=== PATIENT | female | born 1955 | race Asian ===

== ENCOUNTER 2019-06-20 14:18 | Emergency (ER) | payer BC, OTHER ==
[~2019-06-20] VITALS: Ht 162.6 cm; Wt 65.3 kg
[~2019-06-20 14:18] MED LIST: CENTRUM SILVER1 EAC1; FISHOIL; GLUCOPHAGE1000 MG; GLUCOTROL10 MG; JANUVIA100 MG
[2019-06-20] MEDS ORDERED: MOVE FREE JOIN1 EACH PO (14:38)
[2019-06-20] MEDS ORDERED: APAP650 PO (17:07)
[2019-06-20] MEDS ORDERED: FLEXERIL PO (17:07)
[2019-06-20 17:22] VITALS: BP 116/75
== END 2019-06-20 17:22 | disposition home or self-care (01) ==
LOC: ER 14:18
DX: S72.091A Other fracture of head and neck of right femur, initial encounter for closed fracture (principal); E11.9 Type 2 diabetes mellitus without complications; W18.39XA Other fall on same level, initial encounter; Y92.89 Other specified places as the place of occurrence of the external cause; Y93.89 Activity, other specified; Y99.8 Other external cause status